=== PATIENT | female | born 1950 | race American Indian/Alaskan Native ===

== ENCOUNTER 2017-12-27 11:22 | Inpatient (IN) | payer MEDICARE ==
[2017-12-27] MEDS ORDERED: ASPIRIN PO ONE (11:32)
[2017-12-27 12:34] LABS: Basophils % (Auto) 0.8 % (0.0-1.8); Eosinophils # (Auto) 0.1 K/mm3 (0.0-0.4); Eosinophils % (Auto) 3.1 % (0.0-4.3); Hematocrit 40.7 % (30.3-42.9); Hemoglobin 13.2 gm/dl (10.1-14.3); Lymphocytes # (Auto) 1.8 K/mm3 (1.2-5.4); Lymphocytes % (Auto) 37.2 % (13.4-35.0); Mean Corpuscular HGB Conc 33 % (30-34); Mean Corpuscular Volume 79 fl (79-97); Monocytes # (Auto) 0.5 K/mm3 (0.0-0.8); Monocytes % (Auto) 9.4 % (0.0-7.3); Platelet Count 256 K/mm3 (140-440); Red Blood Count 5.14 M/mm3 (3.65-5.03)
[2017-12-27 12:39] LABS: Mean Corpuscular Hemoglobin 26 pg (28-32)
[2017-12-27 12:40] LABS: BUN/Creatinine Ratio 17; Blood Urea Nitrogen 12 mg/dL (7-17); Calcium 9.7 mg/dL (8.4-10.2); Hemolysis Index 8
[2017-12-27] MEDS ORDERED: NORVASC PO ONE (13:00)
--- NOTE | 2017-12-27 13:23 | Emergency Department Report ---
ED General Adult HPI - General Chief complaint: Chest Pain Stated complaint: CHEST PAIN Time Seen by Provider: 12/27/17 12:42 Source: patient Mode of arrival: Stretcher Limitations: No Limitations - History of Present Illness Severity scale (0 -10): 10 - Related Data Home Medications Medication Instructions Recorded Confirmed Last Taken Clopidogrel Bisulfate [Plavix] 12/27/17 Unknown Hydrochlorothiazide 12/27/17 Unknown PROzac 12/27/17 12/27/17 Unknown SEROquel 12/27/17 Unknown Allergies Allergy/AdvReac Type Severity Reaction Status Date / Time No Known Allergies Allergy Unverified 12/27/17 11:27 ED Review of Systems ROS: Stated complaint: CHEST PAIN Other details as noted in HPI ED Past Medical Hx - Past Medical History Hx Hypertension: Yes Hx Psychiatric Treatment: Yes (Schzio affective disorder) Hx COPD: Yes - Social History Smoking Status: Current Every Day Smoker Substance Use Type: None - Medications Home Medications: Home Medications Medication Instructions Recorded Confirmed Last Taken Type Clopidogrel Bisulfate [Plavix] 12/27/17 Unknown History Hydrochlorothiazide 12/27/17 Unknown History PROzac 12/27/17 12/27/17 Unknown History SEROquel 12/27/17 Unknown History ED Physical Exam - General Limitations: No Limitations ED Course Vital Signs 12/27/17 12/27/17 12/27/17 11:27 12:14 12:16 Temperature 98.7 F 98.0 F Pulse Rate 71 67 Respiratory 18 17 17 Rate Blood Pressure 165/97 Blood Pressure 175/83 [Left] O2 Sat by Pulse 97 99 96 Oximetry 12/27/17 13:06 Temperature Pulse Rate 67 Respiratory Rate Blood Pressure 185/89 Blood Pressure [Left] O2 Sat by Pulse Oximetry ED Medical Decision Making - Lab Data Result diagrams: 12/27/17 12:06 12/27/17 12:06 Laboratory Results - last 24 hr 12/27/17 12/27/17 12:06 12:06 WBC 4.8 RBC 5.14 H Hgb 13.2 Hct 40.7 MCV 79 MCH 26 L MCHC 33 RDW 14.0 Plt Count 256 Lymph % (Auto) 37.2 H [place] % (Auto) 9.4 H Eos % (Auto) 3.1 Baso % (Auto) 0.8 Lymph # 1.8 [place] # 0.5 Eos # 0.1 Baso # 0.0 Seg Neutrophils % 49.5 Seg Neutrophils # 2.4 Sodium 138 Potassium 3.7 Chloride 95.6 L Carbon Dioxide 28 Anion Gap 18 BUN 12 Creatinine 0.7 Estimated GFR > 60 BUN/Creatinine Ratio 17 Glucose 84 Calcium 9.7 Troponin T < 0.010 - EKG Data -: EKG Interpreted by Hi EKG shows normal: sinus rhythm Rate: normal - EKG Data Interpretation: other (incomplete right bundle branch block slightly prolonged QT interval and nonspecific ST-T wave changes) - Medical Decision Making Laboratory Results - last 24 hr 12/27/17 12/27/17 12:06 12:06 WBC 4.8 RBC 5.14 H Hgb 13.2 Hct 40.7 MCV 79 MCH 26 L MCHC 33 RDW 14.0 Plt Count 256 Lymph % (Auto) 37.2 H [place] % (Auto) 9.4 H Eos % (Auto) 3.1 Baso % (Auto) 0.8 Lymph # 1.8 [place] # 0.5 Eos # 0.1 Baso # 0.0 Seg Neutrophils % 49.5 Seg Neutrophils # 2.4 Sodium 138 Potassium 3.7 Chloride 95.6 L Carbon Dioxide 28 Anion Gap 18 BUN 12 Creatinine 0.7 Estimated GFR > 60 BUN/Creatinine Ratio 17 Glucose 84 Calcium 9.7 Troponin T < 0.010 Critical care attestation.: If time is entered above; I have spent that time in minutes in the direct care of this critically ill patient, excluding procedure time. ED Disposition Condition: Stable Referrals: PRIMARY CARE, [Primary Care Provider] - 3-5 Days
[2017-12-27] MEDS ORDERED: NITRO-BID 2% TP ONE ×2 (13:30→15:12)
[2017-12-27] MEDS ORDERED: LEVAQUIN 500MG/100ML 500 MG/100 ML BAG IV ONE ×2 (13:38→15:12)
--- NOTE | 2017-12-27 13:45 | Emergency Department Report ---
ED Chest Pain HPI - General Chief Complaint: Chest Pain Stated Complaint: CHEST PAIN Time Seen by Provider: 12/27/17 12:42 Source: patient Mode of arrival: Stretcher Limitations: No Limitations - History of Present Illness Initial Comments: Patient states that she had a cramp in the left side of her chest for several minutes this a.m. She states she is had cramps before but has never gone to a doctor for this in the past. She states that she has COPD but does not take meds or use of inhaler. She states she is out of her blood pressure medicine but dropped her prescription off yesterday. Over the last few days she has had yellow green sputum. She does not describe acute shortness of breath but states that she has shortness of breath related to her COPD. She denies any recent travel or leg pain or swelling. MD Complaint: chest pain -: Gradual Onset: during rest Pain Location: left chest Pain Radiation: none Severity: severe Severity scale (0 -10): 10 Quality: other Consistency: constant Improves With: nothing Worsens With: nothing re: dyspnea. denies: nausea, vomting, diaphoresis Other Symptoms: cough. denies: fever, syncope, rash, acid taste in mouth, leg swelling, palpitations, burping Treatments Prior to Arrival: none - Related Data Home Medications Medication Instructions Recorded Confirmed Last Taken Clopidogrel Bisulfate [Plavix] 12/27/17 Unknown Hydrochlorothiazide 12/27/17 Unknown PROzac 12/27/17 12/27/17 Unknown SEROquel 12/27/17 Unknown Allergies Allergy/AdvReac Type Severity Reaction Status Date / Time No Known Allergies Allergy Unverified 12/27/17 11:27 Heart Score - HEART Score History: Slightly suspicious EKG: Non-specific Age: > 65 Risk factors: 1-2 risk factors Troponin: < normal limit HEART Score: 4 - Critical Actions Critical Actions: 4-6 pts:12-16.6% risk of adverse cardiac event. Should be admitted ED Review of Systems ROS: Stated complaint: CHEST PAIN Other details as noted in HPI Constitutional: denies: chills, fever Eyes: denies: eye pain, eye discharge, vision change ENT: denies: ear pain, throat pain Respiratory: cough, shortness of breath. denies: wheezing Cardiovascular: chest pain. denies: palpitations Endocrine: no symptoms reported Gastrointestinal: denies: abdominal pain, nausea, diarrhea Genitourinary: denies: urgency, dysuria, discharge Musculoskeletal: denies: back pain, joint swelling, arthralgia Skin: denies: rash, lesions Neurological: denies: headache, weakness, paresthesias Psychiatric: denies: anxiety, depression Hematological/Lymphatic: denies: easy bleeding, easy bruising ED Past Medical Hx - Past Medical History Hx Hypertension: Yes Hx Psychiatric Treatment: Yes (Schzio affective disorder) Hx COPD: Yes - Social History Smoking Status: Current Every Day Smoker Substance Use Type: None - Medications Home Medications: Home Medications Medication Instructions Recorded Confirmed Last Taken Type Clopidogrel Bisulfate [Plavix] 12/27/17 Unknown History Hydrochlorothiazide 12/27/17 Unknown History PROzac 12/27/17 12/27/17 Unknown History SEROquel 12/27/17 Unknown History ED Physical Exam - General Limitations: No Limitations General appearance: alert, in no apparent distress - Head Head exam: Present: atraumatic, normocephalic - Eye Eye exam: Present: normal appearance, PERRL, EOMI. Absent: scleral icterus - ENT ENT exam: Present: mucous membranes moist - Neck Neck exam: Present: normal inspection - Respiratory Respiratory exam: Present: decreased breath sounds (Slightly distant). Absent: respiratory distress, accessory muscle use - Cardiovascular Cardiovascular Exam: Present: regular rate, normal rhythm. Absent: systolic murmur, diastolic murmur, rubs, gallop - GI/Abdominal GI/Abdominal exam: Present: soft, normal bowel sounds. Absent: distended, tenderness, guarding, rebound, rigid - Extremities Exam Extremities exam: Present: normal inspection - Back Exam Back exam: Present: normal inspection - Neurological Exam Neurological exam: Present: alert, oriented X3, CN II-XII intact. Absent: motor sensory deficit - Psychiatric Psychiatric exam: Present: normal affect, normal mood - Skin Skin exam: Present: warm, dry, intact, normal color. Absent: rash ED Course Vital Signs 12/27/17 12/27/17 12/27/17 11:27 12:14 12:16 Temperature 98.7 F 98.0 F Pulse Rate 71 67 Respiratory 18 17 17 Rate Blood Pressure 165/97 Blood Pressure 175/83 [Left] O2 Sat by Pulse 97 99 96 Oximetry 12/27/17 13:06 Temperature Pulse Rate 67 Respiratory Rate Blood Pressure 185/89 Blood Pressure [Left] O2 Sat by Pulse Oximetry - Reevaluation(s) Reevaluation #1: Patient given aspirin, Nitropaste and amlodipine. No chest pain at this time. I decided to do a CTA as her chest pain was somewhat atypical and I think it d- dimer will not be helpful considering her acute bronchitis. Patient is referred to Dr. Shook of the hospitalist service to complete her workup. 12/27/17 13:54 TAPAN score - Tapan Score Age > 65: (0) No Aspirin use within the Past 7 Days: (0) No 3 or more CAD Risk Factors: (0) No 2 or more Angina events in past 24 hrs: (0) No Known CAD with more than 50% Stenosis: (0) No Elevated Cardiac Markers: (0) No ST Deviation Greater than 0.5mm: (0) No TAPAN Score: 0 ED Medical Decision Making - Lab Data Result diagrams: 12/27/17 12:06 12/27/17 12:06 - EKG Data -: EKG Interpreted by Me EKG shows normal: sinus rhythm, axis, intervals, ST-T waves Rate: normal - EKG Data Interpretation: other (incomplete right bundle branch block minimal diffuse ST depression) - Radiology Data interpreted by me: Chest x-ray shows no acute process Critical care attestation.: If time is entered above; I have spent that time in minutes in the direct care of this critically ill patient, excluding procedure time. ED Disposition Clinical Impression: Hypertension, uncontrolled Chest pain Qualifiers: Chest pain type: unspecified Qualified Code(s): R07.9 - Chest pain, unspecified Acute bronchitis Qualifiers: Bronchitis organism: unspecified organism Qualified Code(s): J20.9 - Acute bronchitis, unspecified Disposition: 09 OP ADMIT IP TO THIS HOSP Is pt being admited?: Yes Does the pt Need Aspirin: Yes Condition: Stable Instructions: Chest Pain (ED), Hypertension (ED), Acute Bronchitis (ED) Referrals: PRIMARY CARE,MD [Primary Care Provider] - 3-5 Days Time of Disposition: 13:56
--- NOTE | 2017-12-27 13:48 | History and Physical Report ---
History of Present Illness Chief complaint: My chest hurts History of present illness: 67 YO Female with COPD, HTN, Schizoaffective Disorder, Nicotine Dependence presents to ED for evaluation. Pt states that she has experienced acute onset of Left side chest pain. Pain is 10/10, constant, localized to he left chest, constant, severe, sharp, not worsened exertion, or relieved with rest. Pt acknowledges noncompliance with blood pressure medication. Pt seen and evaluated in ED and found to have symptoms consistent with ACS. Pt admitted to telemetry. PT denies fever, chills, nausea, vomting, diaphoresis, cough, syncope , rash, acid taste in mouth, leg swelling, palpitations, burping, recent ill contacts, prolonged travel/immobility, unilateral leg swelling, calf pain, or recent ill contacts. Past History Past Medical History: COPD, hypertension, other (schizoaffective disorder) Past Surgical History: No surgical history, Other (reviewed) Social history: smoking Family history: hypertension Medications and Allergies Allergies Allergy/AdvReac Type Severity Reaction Status Date / Time No Known Allergies Allergy Unverified 12/27/17 11:27 Home Medications Medication Instructions Recorded Confirmed Last Taken Type Clopidogrel Bisulfate [Plavix] 75 mg PO DAILY 12/27/17 12/27/17 Unknown History FLUoxetine [PROzac] 20 mg PO QDAY 12/27/17 12/27/17 Unknown History Hydrochlorothiazide [Hctz] 12.5 mg PO QDAY 12/27/17 12/27/17 Unknown History Quetiapine Fumarate [SEROquel] 50 mg PO QDAY 12/27/17 12/27/17 Unknown History Active Meds: Active Medications Levofloxacin/Dextrose (Levaquin 500mg/100ml) 500 mg in 100 mls @ 100 mls/hr IV ONCE ONE Stop: 12/27/17 14:37 Review of Systems Constitutional: no weight loss, no weight gain, no fever, no chills Ears, nose, mouth and throat: no ear pain, no ear discharge, no tinnitis, no decreased hearing, no nose pain, no nasal congestion Breasts: no change in shape, no swelling, no mass Cardiovascular: chest pain, no orthopnea, no palpitations, no syncope, no claudication, no phlebitis Respiratory: no cough, no cough with sputum, no excessive sputum, no hemoptysis Gastrointestinal: no nausea, no vomiting, no diarrhea, no constipation Genitourinary Female: no pelvic pain, no flank pain, no menorrhagia, no urinary frequency, no urgency Rectal: no pain, no incontinence, no bleeding Musculoskeletal: no neck stiffness, no neck pain, no shooting arm pain, no arm numbness/tingling, no low back pain Integumentary: no rash, no pruritis, no redness, no sores, no wounds Neurological: no paralysis, no weakness, no parathesias, no numbness, no tingling, no seizures Psychiatric: no anxiety, no memory loss, no change in sleep habits, no sleep disturbances, no insomnia, no hypersomnia, no change in appetite Endocrine: no cold intolerance, no heat intolerance, no polyphagia, no excessive thirst, no polydipsia, no polyuria Hematologic/Lymphatic: no easy bruising, no easy bleeding, no lymphadenopathy, no lymphedema Allergic/Immunologic: no urticaria, no allergic rhinitis, no wheezing, no persistent infections, no anaphylaxis Exam - Constitutional Vitals: Temp Pulse Resp BP Pulse Ox 98.0 F 67 17 185/89 96 12/27/17 12:14 12/27/17 13:06 12/27/17 12:16 12/27/17 13:06 12/27/17 12:16 General appearance: Present: mild distress, cachectic - EENT Eyes: Present: PERRL ENT: hearing intact, clear oral mucosa - Neck Neck: Present: supple, normal ROM - Respiratory Respiratory effort: normal Respiratory: bilateral: CTA - Cardiovascular Heart Sounds: Present: S1 & S2. Absent: rub, click - Extremities Extremities: pulses symmetrical, No edema Peripheral Pulses: within normal limits - Abdominal General gastrointestinal: Present: soft, non-tender, non-distended, normal bowel sounds Female genitourinary: Present: normal - Integumentary Integumentary: Present: clear, warm, dry - Musculoskeletal Musculoskeletal: gait normal, strength equal bilaterally - Psychiatric Psychiatric: appropriate mood/affect, intact judgment & insight - Neurologic Neurologic: CNII-XII intact, moves all extremities Results - Labs CBC & Chem 7: 12/27/17 12:06 12/27/17 12:06 Labs: Abnormal lab results 12/27/17 12/27/17 Range/Units 12:06 12:06 RBC 5.14 H (3.65-5.03) M/mm3 MCH 26 L (28-32) pg Lymph % (Auto) 37.2 H (13.4-35.0) % [place] % (Auto) 9.4 H (0.0-7.3) % Chloride 95.6 L (98-107) mmol/L Assessment and Plan - Patient Problems (1) ACS (acute coronary syndrome) Current Visit: Yes Status: Acute Plan to address problem: Admit to telemetry, serial cardiac enzymes, ekg, telemetry, echo, stress test, d dimer, cardiology consulted, morphine, supplemental oxygen, nitro, aspirin, (2) COPD with exacerbation Current Visit: Yes Status: Acute Plan to address problem: supplemental oxygen, nebulizer therapy, IV steroids, IV antibiotics, NIPPV as clinically indicated. (3) HTN (hypertension) Current Visit: Yes Status: Acute Qualifiers: Hypertension type: essential hypertension Qualified Code(s): I10 - Essential (primary) hypertension Plan to address problem: Monitor bp q shift, IV hydralazine prn, continue medical management. (4) Nicotine dependence Current Visit: Yes Status: Acute Qualifiers: Nicotine product type: cigarettes Substance use status: in withdrawal Qualified Code(s): F17.213 - Nicotine dependence, cigarettes, with withdrawal Plan to address problem: Pt refused to pick quit date, supportive care. (5) DVT prophylaxis Current Visit: Yes Status: Acute
[2017-12-27 14:02] LABS: Albumin 4.6 g/dL (3.9-5); Bilirubin,Direct 0.4 mg/dL (0-0.2)
[2017-12-27] MEDS ORDERED: PROVENTIL IH PRN (14:14)
[2017-12-27] MEDS ORDERED: TYLENOL PO PRN (14:14)
[2017-12-27] MEDS ORDERED: MORPHINE IV PRN (14:14)
[2017-12-27] MEDS ORDERED: SODIUM CHLORIDE FLUSH SYRINGE 10 ML IV PRN (14:14)
[2017-12-27] MEDS ORDERED: ZOFRAN IV PRN (14:14)
[2017-12-27] MEDS ORDERED: BABY ASPIRIN PO STA (14:21)
--- NOTE | 2017-12-27 14:24 | XRay Report ---
AP CHEST: HISTORY: Cough AP view of the chest demonstrates a normal mediastinal and cardiac contour with clear lungs and normal bony and soft tissue structures. IMPRESSION: No acute process.
[2017-12-27 14:35] LABS: INR 0.94 (0.87-1.13)
[2017-12-27 14:36] LABS: Partial Thromboplastin Time 33.3 Sec. (24.2-36.6)
[2017-12-27 18:41] LABS: Chol/HDL Ratio 2.2 %
[2017-12-27] MEDS: HABITROL TD SCH (20:22)
[2017-12-27] MEDS: ZITHROMAX 500 MG in NACL 0.9% 250ML 250 ML IV SCH (20:29)
[2017-12-28] MEDS ORDERED: NACL ONE (01:40)
--- NOTE | 2017-12-28 02:31 | Cat Scan Report ---
FINAL REPORT EXAM: CT ANGIO CHEST HISTORY: chest pain left sided TECHNIQUE: A CT angiogram was performed following the intravenous injection of 100 cc of Omnipaque 350. Rotational, sagittal and coronal reconstructions were reviewed FINDINGS: There is no evidence of pulmonary embolus or aortic dissection. There is mild ectasia of the ascending aorta measuring 3.3 cm in diameter. The heart size is normal. Pericardial fluid is not seen. The lungs are not congested. The lungs reveal severe emphysematous changes with scarring of both lung apices. There are no acute infiltrates or effusions. At the thoracic inlet the thyroid gland appears normal. The skeletal structures do not show any acute changes. In the upper abdomen the adrenal glands appear normal. IMPRESSION: No evidence of pulmonary embolus or aortic dissection. Severe emphysema with scarring in both lung apices. No acute infiltrates, congestion or pleural effusion
[2017-12-28] MEDS ORDERED: LEXISCAN IV ONE ×2 (09:35→09:37)
--- NOTE | 2017-12-28 12:37 | Consultation ---
History of Present Illness Consult date: 12/28/17 Consult reason: chest pain History of present illness: The patient is a 67-year-old woman with long-term tobacco abuse, she states since the age of 18. As a result, she has COPD and emphysema. She presented to the hospital with complaints of several days of cough with yellowish green sputum, symptoms which she began after a flulike illness. As a result of protracted coughing, she developed left sided chest pain which was worse with coughing, movement of the thorax and inspiration. In the emergency room, a chest CT was negative for pulmonary embolism, and she was admitted for cardiac chest pain workup. Cardiology consultation was requested. ECG is abnormal sinus rhythm with incomplete right bundle branch block, no ischemic changes. Chest x-ray revealed hyperinflation and changes of COPD, but no interstitial edema and normal cardiac silhouette. Cardiac isoenzymes were normal. She presented for a stress test ordered by the medical service, which was completed, results are normal. At the time of the stress test, the patient continues to have a persistent bronchitic cough. On home medications, the patient lists Plavix 75 mg daily, indication for antiplatelet therapy is unclear. Past History Past Medical History: COPD, hypertension, other (schizoaffective disorder) Past Surgical History: No surgical history, Other (reviewed) Social history: smoking Family history: hypertension Medications and Allergies Allergies Allergy/AdvReac Type Severity Reaction Status Date / Time No Known Allergies Allergy Unverified 12/27/17 11:27 Home Medications Medication Instructions Recorded Confirmed Last Taken Type Clopidogrel Bisulfate [Plavix] 75 mg PO DAILY 12/27/17 12/27/17 Unknown History FLUoxetine [PROzac] 20 mg PO QDAY 12/27/17 12/27/17 Unknown History Hydrochlorothiazide [Hctz] 12.5 mg PO QDAY 12/27/17 12/27/17 Unknown History Quetiapine Fumarate [SEROquel] 50 mg PO QDAY 12/27/17 12/27/17 Unknown History Active Meds: Active Medications Acetaminophen (Tylenol) 650 mg PO Q4H PRN PRN Reason: Pain MILD(1-3)/Fever >100.5/JOSE Albuterol (Proventil) 2.5 mg IH Q4HRT PRN PRN Reason: Shortness Of Breath Clopidogrel Bisulfate (Plavix) 75 mg PO DAILY [place] Fluoxetine HCl (Prozac) 20 mg PO QDAY [facility] Hydrochlorothiazide (Hctz) 12.5 mg PO QDAY [facility] Azithromycin 500 mg/ Sodium (Chloride) 250 mls @ 250 mls/hr IV Q24H [facility] Last Admin: 12/27/17 20:29 Dose: 250 mls/hr Methylprednisolone Sodium Succinate (Solu-Medrol) 20 mg IV Q12HR [facility] Last Admin: 12/27/17 22:30 Dose: 20 mg Morphine Sulfate (Morphine) 2 mg IV Q4H PRN PRN Reason: Pain, Moderate (4-6) Nicotine (Habitrol) 14 mg TD Q24H [facility] Last Admin: 12/27/17 20:22 Dose: 14 mg Ondansetron HCl (Zofran) 4 mg IV Q8H PRN PRN Reason: N/V unrelieved by Regmichael Quetiapine Fumarate (Seroquel) 50 mg PO QHS [facility] Last Admin: 12/27/17 22:30 Dose: 50 mg Sodium Chloride (Sodium Chloride Flush Syringe 10 Ml) 10 ml IV PRN PRN PRN Reason: LINE FLUSH Review of Systems Cardiovascular: chest pain, shortness of breath, no orthopnea, no palpitations, no rapid/irregular heart beat, no edema, no syncope, no lightheadedness Physical Examination Vital Signs Temp Pulse Resp BP Pulse Ox 98.7 F 71 18 165/97 97 12/27/17 11:27 12/27/17 11:27 12/27/17 11:27 12/27/17 11:27 12/27/17 11:27 General appearance: no acute distress HEENT: Positive: PERRL Neck: Positive: neck supple Cardiac: Positive: Reg Rate and Rhythm Lungs: Positive: Decreased Breath Sounds Neuro: Positive: Grossly Intact Abdomen: Positive: Soft Female genitourinary: deferred Skin: Positive: Clear Extremities: Absent: edema Results 12/27/17 12:06 12/27/17 12:06 Cardiac Enzymes 12/27/17 Range/Units 12:06 AST 44 H (5-40) units/L Coagulation 12/27/17 Range/Units 13:44 PT 13.0 (12.2-14.9) Sec. INR 0.94 (0.87-1.13) APTT 33.3 (24.2-36.6) Sec. Lipids 12/27/17 Range/Units 17:47 Triglycerides 157 H (2-149) mg/dL Cholesterol 159 (50-199) mg/dL HDL Cholesterol 72 H (40-59) mg/dL Cholesterol/HDL Ratio 2.20 % CBC 12/27/17 Range/Units 12:06 WBC 4.8 (4.5-11.0) K/mm3 RBC 5.14 H (3.65-5.03) M/mm3 Hgb 13.2 (10.1-14.3) gm/dl Hct 40.7 (30.3-42.9) % Plt Count 256 (140-440) K/mm3 Lymph # 1.8 (1.2-5.4) K/mm3 [place] # 0.5 (0.0-0.8) K/mm3 Eos # 0.1 (0.0-0.4) K/mm3 Baso # 0.0 (0.0-0.1) K/mm3 Comprehensive Metabolic Panel 12/27/17 12/27/17 Range/Units 12:06 12:06 Sodium 138 (137-145) mmol/L Potassium 3.7 (3.6-5.0) mmol/L Chloride 95.6 L (98-107) mmol/L Carbon Dioxide 28 (22-30) mmol/L BUN 12 (7-17) mg/dL Creatinine 0.7 (0.7-1.2) mg/dL Glucose 84 (65-100) mg/dL Calcium 9.7 (8.4-10.2) mg/dL Direct Bilirubin 0.4 H (0-0.2) mg/dL Indirect Bilirubin 0.4 mg/dL AST 44 H (5-40) units/L ALT 39 (7-56) units/L Alkaline Phosphatase 127 (35-129) units/L Total Protein 7.6 (6.3-8.2) g/dL Albumin 4.6 (3.9-5) g/dL EKG interpretations - Telemetry EKG Rhythm: Sinus Rhythm Assessment and Plan - Patient Problems (1) Chest pain Current Visit: Yes Status: Acute Qualifiers: Chest pain type: unspecified Qualified Code(s): R07.9 - Chest pain, unspecified Plan to address problem: Patient's chest pain appears musculoskeletal, following protracted coughing associated with acute bronchitis. Cardiac workup has been extensive, no ischemia on ECG, normal cardiac enzymes, and normal thallium stress test. I will defer to the medical service and pulmonology for further management of the patient's COPD, acute bronchitis and pulmonary infection.
[2017-12-28] MEDS: HCTZ PO SCH (14:30)
[2017-12-28] MEDS: NORVASC PO SCH (14:31)
[2017-12-28] MEDS: PROzac PO SCH (14:31)
[2017-12-28] MEDS: PLAVIX PO SCH (14:36)
[2017-12-28] MEDS: HABITROL TD SCH (20:00)
[2017-12-28] MEDS: ZITHROMAX 500 MG in NACL 0.9% 250ML 250 ML IV SCH (21:00)
--- NOTE | 2017-12-28 21:04 | Progress Note ---
Assessment and Plan Assessment and plan: 67 YO Female with COPD, HTN, Schizoaffective Disorder, Nicotine Dependence presents to ED for evaluation. Pt states that she has experienced acute onset of Left side chest pain. Pain is 10/10, constant, localized to he left chest, constant, severe, sharp, not worsened exertion, or relieved with rest. Pt acknowledges noncompliance with blood pressure medication. Pt seen and evaluated in ED and found to have symptoms consistent with ACS. Pt admitted to telemetry. PT denies fever, chills, nausea, vomting, diaphoresis, cough, syncope , rash, acid taste in mouth, leg swelling, palpitations, burping, recent ill contacts, prolonged travel/immobility, unilateral leg swelling, calf pain, or recent ill contacts. (1) Atypical chest pain Likely secondary to costochondritris from Cough. Stress test is negative. Cardiology input. (2) COPD with exacerbation supplemental oxygen, nebulizer therapy, IV steroids, IV antibiotics, NIPPV as clinically indicated. (3) HTN (hypertension) ADJUST BP meds Monitor bp q shift, IV hydralazine prn, continue medical management. (4) Nicotine dependence/ Polysubstance abuse Pt refused to pick quit date, supportive care. Report that she is in Rehab for crack cocain use and etc. (5) Cough, possible Viral bronchitis Monitor, if fever then oral antibiotics, if not just continue tesslon perals (6)DVT prophylaxis Current Visit: Yes Status: Acute Anticipate discharge in am. History Interval history: Patient seen and examined in no acute distress. Informs me that she is in at [facility] for substance abuse management. Hospitalist Physical - Constitutional Vitals: Temp Pulse Resp BP Pulse Ox 98.8 F 76 18 156/76 97 12/28/17 14:39 12/28/17 14:39 12/28/17 14:39 12/28/17 14:39 12/28/17 14:39 General appearance: Present: no acute distress, other (cachetic) - EENT Eyes: Present: PERRL, EOM intact ENT: hearing intact, dentition normal - Neck Neck: Present: supple, normal ROM - Respiratory Respiratory effort: normal Respiratory: bilateral: diminished - Cardiovascular Rhythm: regular Heart Sounds: Present: S1 & S2. Absent: systolic murmur, diastolic murmur - Extremities Extremities: no ischemia, pulses intact, pulses symmetrical, No edema, normal temperature, Full ROM Peripheral Pulses: within normal limits - Abdominal General gastrointestinal: soft, non-tender, non-distended, normal bowel sounds - Integumentary Integumentary: Present: clear, warm, dry - Psychiatric Psychiatric: appropriate mood/affect, intact judgment & insight, cooperative - Allied Health Allied health notes reviewed: nursing Results - Labs CBC & Chem 7: 12/27/17 12:06 12/27/17 12:06 Labs: Laboratory Last Values WBC 4.8 K/mm3 (4.5-11.0) 12/27/17 12:06 RBC 5.14 M/mm3 (3.65-5.03) H 12/27/17 12:06 Hgb 13.2 gm/dl (10.1-14.3) 12/27/17 12:06 Hct 40.7 % (30.3-42.9) 12/27/17 12:06 MCV 79 fl (79-97) 12/27/17 12:06 MCH 26 pg (28-32) L 12/27/17 12:06 MCHC 33 % (30-34) 12/27/17 12:06 RDW 14.0 % (13.2-15.2) 12/27/17 12:06 Plt Count 256 K/mm3 (140-440) 12/27/17 12:06 Lymph % (Auto) 37.2 % (13.4-35.0) H 12/27/17 12:06 Island % (Auto) 9.4 % (0.0-7.3) H 12/27/17 12:06 Eos % (Auto) 3.1 % (0.0-4.3) 12/27/17 12:06 Baso % (Auto) 0.8 % (0.0-1.8) 12/27/17 12:06 Lymph # 1.8 K/mm3 (1.2-5.4) 12/27/17 12:06 Island # 0.5 K/mm3 (0.0-0.8) 12/27/17 12:06 Eos # 0.1 K/mm3 (0.0-0.4) 12/27/17 12:06 Baso # 0.0 K/mm3 (0.0-0.1) 12/27/17 12:06 Seg Neutrophils % 49.5 % (40.0-70.0) 12/27/17 12:06 Seg Neutrophils # 2.4 K/mm3 (1.8-7.7) 12/27/17 12:06 PT 13.0 Sec. (12.2-14.9) 12/27/17 13:44 INR 0.94 (0.87-1.13) 12/27/17 13:44 APTT 33.3 Sec. (24.2-36.6) 12/27/17 13:44 D-Dimer < 135.00 ng/mlDDU (0-234) 12/27/17 13:44 Sodium 138 mmol/L (137-145) 12/27/17 12:06 Potassium 3.7 mmol/L (3.6-5.0) 12/27/17 12:06 Chloride 95.6 mmol/L (98-107) L 12/27/17 12:06 Carbon Dioxide 28 mmol/L (22-30) 12/27/17 12:06 Anion Gap 18 mmol/L 12/27/17 12:06 BUN 12 mg/dL (7-17) 12/27/17 12:06 Creatinine 0.7 mg/dL (0.7-1.2) 12/27/17 12:06 Estimated GFR > 60 ml/min 12/27/17 12:06 BUN/Creatinine Ratio 17 % 12/27/17 12:06 Glucose 84 mg/dL (65-100) 12/27/17 12:06 Calcium 9.7 mg/dL (8.4-10.2) 12/27/17 12:06 Total Bilirubin 0.80 mg/dL (0.1-1.2) 12/27/17 12:06 Direct Bilirubin 0.4 mg/dL (0-0.2) H 12/27/17 12:06 Indirect Bilirubin 0.4 mg/dL 12/27/17 12:06 AST 44 units/L (5-40) H 12/27/17 12:06 ALT 39 units/L (7-56) 12/27/17 12:06 Alkaline Phosphatase 127 units/L (35-129) 12/27/17 12:06 Troponin T < 0.010 ng/mL (0.00-0.029) 12/27/17 21:18 NT-Pro-B Natriuret Pep 230.2 pg/mL (0-900) 12/27/17 12:06 Total Protein 7.6 g/dL (6.3-8.2) 12/27/17 12:06 Albumin 4.6 g/dL (3.9-5) 12/27/17 12:06 Albumin/Globulin Ratio 1.5 % 12/27/17 12:06 Triglycerides 157 mg/dL (2-149) H 12/27/17 17:47 Cholesterol 159 mg/dL (50-199) 12/27/17 17:47 LDL Cholesterol Direct 56 mg/dL (50-130) 12/27/17 17:47 HDL Cholesterol 72 mg/dL (40-59) H 12/27/17 17:47 Cholesterol/HDL Ratio 2.20 % 12/27/17 17:47
--- NOTE | 2017-12-29 08:14 | Treadmill Report ---
THALLIUM STRESS TEST REPORT LEFT VENTRICLE: Left ventricular chamber size is within normal limits. Perfusion study demonstrates homogeneous uptake of the tracer in all segments, no significant perfusion defects identified. Gated analysis demonstrates normal left ventricular systolic function, ejection fraction 67%. CONCLUSION: Normal myocardial perfusion study. JOB# [id number] CA/NTS
[2017-12-29] MEDS: NORVASC PO SCH (09:08)
[2017-12-29] MEDS: HCTZ PO SCH (09:08)
[2017-12-29] MEDS: PLAVIX PO SCH (09:13)
[2017-12-29] MEDS: PROzac PO SCH (09:13)
--- NOTE | 2017-12-29 10:19 | Progress Note ---
Assessment and Plan Chest pain, musculoskeletal normal MPI this admission EF 55-60% on echocardiogram COPD exacerbation Chest CT was negative for pulmonary embolism Hypertension No further cardiac workup indicated. Conservative cardiac management. Subjective Date of service: 12/29/17 Interval history: No new complaints. Objective Vital Signs Temp Pulse Resp BP Pulse Ox 12/29/17 09:08 110/63 12/29/17 07:32 98.3 F 73 18 110/63 97 12/29/17 05:06 97.4 F L 80 18 137/76 97 12/29/17 03:00 84 12/28/17 23:47 98.0 F 84 18 153/70 93 12/28/17 21:04 20 12/28/17 20:51 98.8 F 72 18 161/71 96 12/28/17 19:00 68 12/28/17 14:39 98.8 F 76 18 156/76 97 - Physical Examination General: No Apparent Distress HEENT: Positive: PERRL Cardiac: Positive: Reg Rate and Rhythm Neuro: Positive: Grossly Intact
--- NOTE | 2017-12-29 12:30 | Discharge Summary ---
Providers - Providers Date of Admission: 12/27/17 14:14 Date of discharge: 12/29/17 Attending physician: JENNIFER LOZOYA 12/27/17 Consult to Cardiac Rehabilitation [CONS] Routine Reason For Exam: Phase I Primary care physician: RU[employer]Y [employer] Hospitalization Reason for admission: chest pain Condition: Stable Pertinent studies: Stress test negative Hospital course: 67 y/O female admitted with Chest pain and copd exer. Stress test is negative. Pt continues to smoke daily. Pt has been cleared for discharge by the cardiology team. Patient has been counseled about tobacco cessation, risk of worsening COPD, PAD, cancers, and probably . Disposition: DC-01 TO HOME OR SELFCARE Time spent for discharge: More than 35 mins spent - Discharge Diagnoses (1) COPD with exacerbation Status: Acute (2) Chest pain Status: Acute Qualifiers: Chest pain type: unspecified Qualified Code(s): R07.9 - Chest pain, unspecified (3) HTN (hypertension) Status: Acute Qualifiers: Hypertension type: essential hypertension Qualified Code(s): I10 - Essential (primary) hypertension (4) Nicotine dependence Status: Acute Qualifiers: Nicotine product type: cigarettes Substance use status: in withdrawal Qualified Code(s): F17.213 - Nicotine dependence, cigarettes, with withdrawal Core Measure Documentation - Palliative Care Palliative Care/ Comfort Measures: Not Applicable - Core Measures Any of the following diagnoses?: none - VTE Discharge Requirements Deep Vein Thrombosis/Pulmonary Embolism Present on Admission: No - Acute CT Discharge Requirements Aspirin at discharge: No Reason for no aspirin on DC: Intolerance in past - Heart Failure Discharge Requirements CRISTINA/ARB for LVSD if EF <40%: Not Applicable - Stroke Discharge Requirements Statin for LDL = or >70 mg/dl on DC: Not Applicable Exam - Constitutional Vitals: Temp Pulse Resp BP Pulse Ox 98.3 F 73 18 110/63 98 12/29/17 07:32 12/29/17 07:32 12/29/17 07:32 12/29/17 09:08 12/29/17 10:00 General appearance: Present: no acute distress, well-nourished - EENT Eyes: Present: PERRL, EOM intact ENT: hearing intact, clear oral mucosa, dentition normal - Neck Neck: Present: supple, normal ROM - Respiratory Respiratory effort: normal Respiratory: bilateral: CTA, negative: diminished, rales, rhonchi, wheezing - Cardiovascular Rhythm: regular Heart Sounds: Present: S1 & S2 - Extremities Extremities: no ischemia, pulses intact, No edema, normal temperature, normal color, Full ROM Peripheral Pulses: within normal limits - Abdominal General gastrointestinal: Present: soft, non-tender, non-distended, normal bowel sounds Female genitourinary: Present: deferred - Rectal Rectal Exam: deferred - Integumentary Integumentary: Present: clear, warm, dry - Musculoskeletal Musculoskeletal: strength equal bilaterally - Psychiatric Psychiatric: appropriate mood/affect, intact judgment & insight, memory intact, cooperative - Neurologic Neurologic: CNII-XII intact, moves all extremities, gait normal - Allied Health Allied health notes reviewed: nursing, social work, case management Plan Activity: no restrictions, fall precautions Weight Bearing Status: Full Weight Bearing Diet: low fat, low cholesterol, low salt Follow up with: PRIMARY CARE, [Primary Care Provider] - 3-5 Days Prescriptions: ALBUTEROL Inhaler [ProAir HFA Inhaler] 2 puff IH QID PRN #1 inhalation PRN Reason: Shortness Of Breath FLUoxetine [PROzac] 20 mg PO QDAY #30 capsule Hydrochlorothiazide [HCTZ] 12.5 mg PO QDAY #30 capsule Prednisone [predniSONE 5 mg (6-Day Pack, 21 Tabs)] 5 mg PO .TAPER #1 tab.ds.pk
[2017-12-29] MEDS ORDERED: ZITHROMAX PO SCH (13:00)
[2017-12-29 13:16] VITALS: BP 160/67
== END 2017-12-29 15:13 | disposition home or self-care (01) | DRG 202 ==
LOC: ED 11:22 → 4A 14:14
PROVIDERS: ADMIT Internal Medicine; ATTEND Family Medicine
DX: J20.9 Acute bronchitis, unspecified (principal); J44.0 Chronic obstructive pulmonary disease with (acute) lower respiratory infection; I24.9 Acute ischemic heart disease, unspecified; J44.1 Chronic obstructive pulmonary disease with (acute) exacerbation; I10 Essential (primary) hypertension; F19.10 Other psychoactive substance abuse, uncomplicated; F25.9 Schizoaffective disorder, unspecified; F17.200 Nicotine dependence, unspecified, uncomplicated; Z91.19 Patient's noncompliance with other medical treatment and regimen; Z82.49 Family history of ischemic heart disease and other diseases of the circulatory system; Z71.6 Tobacco abuse counseling
CPT/HCPCS: 36415; 71045; 71275; 78452; 80048; 80061; 80074; 83880; 84484; 85025; 85379; 85610; 85730; 93005; 93010; 93017; 93306; 96365; A9502; J0456; J1956; J2785; J2920; J7050; Q9967

== ENCOUNTER 2018-01-03 16:27 | Emergency (ER) | payer MEDICARE ==
[2018-01-03 17:33] LABS: Basophils % (Auto) 0.4 % (0.0-1.8); Hematocrit 39.1 % (30.3-42.9); Hemoglobin 12.8 gm/dl (10.1-14.3); Lymphocytes # (Auto) 1.9 K/mm3 (1.2-5.4); Lymphocytes % (Auto) 21.5 % (13.4-35.0); Mean Corpuscular HGB Conc 33 % (30-34); Mean Corpuscular Hemoglobin 26 pg (28-32); Mean Corpuscular Volume 80 fl (79-97); Monocytes # (Auto) 0.5 K/mm3 (0.0-0.8); Monocytes % (Auto) 5.8 % (0.0-7.3); Platelet Count 261 K/mm3 (140-440); Red Blood Count 4.91 M/mm3 (3.65-5.03); Red Cell Distribution Width 14.2 % (13.2-15.2)
[2018-01-03 17:50] LABS: BUN/Creatinine Ratio 20; Blood Urea Nitrogen 16 mg/dL (7-17); Calcium 9.3 mg/dL (8.4-10.2); Hemolysis Index 8
--- NOTE | 2018-01-03 18:41 | Emergency Department Report ---
ED General Adult HPI - General Chief complaint: High BP Stated complaint: HYPERTENSIVE Time Seen by Provider: 01/03/18 18:25 Source: patient Mode of arrival: Ambulatory Limitations: No Limitations - History of Present Illness Initial comments: Patient is 67 years old female has a COPD, hypertension and smoking. Patient presented to the ER with a chief complaint of high blood pressure. Patient stated that she is unable to control blood pressure was higher hydrochlorothiazide. Patient denied any headache, chest pain, shortness of breath, weakness, numbness or tingling sensation. No bowel or bladder incontinence. Patient denied any abdominal pain or nausea or vomiting. - Related Data Home Medications Medication Instructions Recorded Confirmed Last Taken Clopidogrel Bisulfate [Plavix] 75 mg PO DAILY 12/27/17 12/27/17 Unknown FLUoxetine [PROzac] 20 mg PO QDAY 12/27/17 12/27/17 Unknown Hydrochlorothiazide [HCTZ] 12.5 mg PO QDAY 12/27/17 12/27/17 Unknown Quetiapine Fumarate [SEROquel] 50 mg PO QDAY 12/27/17 12/27/17 Unknown Previous Rx's Medication Instructions Recorded Last Taken Type ALBUTEROL Inhaler [ProAir HFA 2 puff IH QID PRN #1 inhalation 12/29/17 Unknown Rx Inhaler] FLUoxetine [PROzac] 20 mg PO QDAY #30 capsule 12/29/17 Unknown Rx Hydrochlorothiazide [HCTZ] 12.5 mg PO QDAY #30 capsule 12/29/17 Unknown Rx Nicotine [Habitrol] 14 mg TD Q24H patch 12/29/17 Unknown Rx Prednisone [predniSONE 5 mg (6-Day 5 mg PO .TAPER #1 tab.ds.pk 12/29/17 Unknown Rx Pack, 21 Tabs)] QUEtiapine [SEROquel] 50 mg PO QHS tablet 12/29/17 Unknown Rx amLODIPine [Norvasc] 2.5 mg PO QDAY tablet 12/29/17 Unknown Rx Allergies Allergy/AdvReac Type Severity Reaction Status Date / Time No Known Allergies Allergy Unverified 12/27/17 11:27 ED Review of Systems ROS: Stated complaint: HYPERTENSIVE Other details as noted in HPI Comment: All other systems reviewed and negative Constitutional: denies: chills, fever Respiratory: denies: cough, orthopnea, shortness of breath, SOB with exertion Cardiovascular: denies: chest pain, palpitations, dyspnea on exertion, orthopnea Gastrointestinal: denies: abdominal pain, nausea, vomiting, diarrhea, constipation, hematemesis, hematochezia Neurological: denies: headache, weakness, numbness, paresthesias ED Past Medical Hx - Past Medical History Previous Medical History?: Yes Hx Hypertension: Yes Hx Psychiatric Treatment: Yes (Schzio affective disorder) Hx COPD: Yes - Surgical History Past Surgical History?: No - Social History Smoking Status: Current Every Day Smoker Substance Use Type: Cocaine - Medications Home Medications: Home Medications Medication Instructions Recorded Confirmed Last Taken Type Clopidogrel Bisulfate [Plavix] 75 mg PO DAILY 12/27/17 12/27/17 Unknown History FLUoxetine [PROzac] 20 mg PO QDAY 12/27/17 12/27/17 Unknown History Hydrochlorothiazide [HCTZ] 12.5 mg PO QDAY 12/27/17 12/27/17 Unknown History Quetiapine Fumarate [SEROquel] 50 mg PO QDAY 12/27/17 12/27/17 Unknown History ALBUTEROL Inhaler [ProAir HFA 2 puff IH QID PRN #1 inhalation 12/29/17 Unknown Rx Inhaler] FLUoxetine [PROzac] 20 mg PO QDAY #30 capsule 12/29/17 Unknown Rx Hydrochlorothiazide [HCTZ] 12.5 mg PO QDAY #30 capsule 12/29/17 Unknown Rx Nicotine [Habitrol] 14 mg TD Q24H patch 12/29/17 Unknown Rx Prednisone [predniSONE 5 mg (6-Day 5 mg PO .TAPER #1 tab.ds.pk 12/29/17 Unknown Rx Pack, 21 Tabs)] QUEtiapine [SEROquel] 50 mg PO QHS tablet 12/29/17 Unknown Rx amLODIPine [Norvasc] 2.5 mg PO QDAY tablet 12/29/17 Unknown Rx ED Physical Exam - General Limitations: No Limitations General appearance: alert, in no apparent distress - Head Head exam: Present: atraumatic, normocephalic - Eye Eye exam: Present: normal appearance, PERRL - ENT ENT exam: Present: normal exam, normal orophraynx - Neck Neck exam: Present: normal inspection, full ROM. Absent: tenderness, meningismus, lymphadenopathy, thyromegaly - Respiratory Respiratory exam: Present: normal lung sounds bilaterally. Absent: respiratory distress, wheezes, rales, rhonchi, stridor, chest wall tenderness, accessory muscle use, decreased breath sounds, prolonged expiratory - Cardiovascular Cardiovascular Exam: Present: regular rate, normal rhythm, normal heart sounds - GI/Abdominal GI/Abdominal exam: Present: soft. Absent: distended, tenderness, guarding, rebound, rigid, normal bowel sounds, organomegaly, mass, bruit, pulsatile mass, hernia - Extremities Exam Extremities exam: Present: normal inspection, full ROM, normal capillary refill - Back Exam Back exam: Present: normal inspection, full ROM. Absent: tenderness, CVA tenderness (R), CVA tenderness (L) - Neurological Exam Neurological exam: Present: alert, oriented X3, CN II-XII intact, normal gait - Skin Skin exam: Present: warm, intact, normal color. Absent: cyanosis, diaphoretic ED Course Vital Signs 01/03/18 01/03/18 01/03/18 16:54 18:37 19:19 Temperature 98.4 F 98.2 F Pulse Rate 85 78 81 Respiratory 18 16 16 Rate Blood Pressure 213/94 183/100 Blood Pressure 190/94 183/100 [Left] O2 Sat by Pulse 94 99 98 Oximetry ED Medical Decision Making - Lab Data Result diagrams: 01/03/18 17:19 01/03/18 17:19 - EKG Data -: EKG Interpreted by Me EKG shows normal: sinus rhythm Rate: normal - EKG Data Interpretation: no acute changes Critical care attestation.: If time is entered above; I have spent that time in minutes in the direct care of this critically ill patient, excluding procedure time. ED Disposition Clinical Impression: Hypertension, uncontrolled Disposition: DC-01 TO HOME OR SELFCARE Is pt being admited?: No Condition: Stable Instructions: Hypertension (ED)
[2018-01-03] MEDS ORDERED: CATAPRES PO ONE (19:02)
[2018-01-03 20:46] VITALS: BP 142/65
== END 2018-01-03 20:45 | disposition home or self-care (01) ==
LOC: ED 16:27
DX: I10 Essential (primary) hypertension (principal); J44.9 Chronic obstructive pulmonary disease, unspecified; F17.200 Nicotine dependence, unspecified, uncomplicated; F25.9 Schizoaffective disorder, unspecified
CPT/HCPCS: 36415; 80048; 85025; 93005; 93010; 99283